=== PATIENT | male | born 1940 | race Caucasian/White ===

== ENCOUNTER 2017-08-26 14:33 | Outpatient (CLI) | payer MEDICARE ==
[2017-08-26 15:47] LABS: Hemoglobin 15.1 g/dL (14.0-18.0); Mean Corpuscular HGB CONC 34.2 g/dL (32.0-36.0); Mean Corpuscular Hemoglobin 31.1 pg (27.0-31.0); Mean Corpuscular Volume 90.9 fl (80.0-94.0); Mean Platelet Volume 9.9 fL (7.4-10.4); Platelet Count 149 thou/uL (130-400); RBC Distribution Width 12.3 % (11.5-14.5); Red Blood Cell (RBC) Count 4.85 mill/uL (4.70-6.10); White Blood Cell (WBC) Count 5.7 thou/uL (4.8-10.8)
[2017-08-26 16:14] LABS: Anion Gap 16 mmol/L (10-20); BUN (Urea Nitrogen) 21 mg/dL (8.4-25.7); Calc. Creatinine Clearance 0 mL/min (70-130); Carbon Dioxide 22 mmol/L (23-31); Chloride 106 mmol/L (98-107); Estimated GFR-MDRD 69; Glucose 122 mg/dL (83-110); Potassium 4.5 mmol/L (3.5-5.1); Sodium 139 mmol/L (136-145)
--- NOTE | 2017-10-27 21:31 | EKG ---
Test Reason : Blood Pressure : / mmHG Vent. Rate : 082 BPM Atrial Rate : 082 BPM P-R Int : 178 ms QRS Dur : 082 ms QT Int : 388 ms P-R-T Axes : 040 010 065 degrees QTc Int : 453 ms Normal sinus rhythm Normal ECG When compared with ECG of 11-APR-2016 14:34, No significant change was found Confirmed by OTF RESENDEZ M.D. ([id number]) on 10/27/2017 9:31:17 PM Referred By: JANET Confirmed By:OTF RESENDEZ M.D.
== END 2017-08-26 14:34 | disposition home or self-care (01) ==
LOC: LABBT 14:33
PROVIDERS: ATTEND Orthopaedic Surgery
DX: Z01.810 Encounter for preprocedural cardiovascular examination (principal); Z01.812 Encounter for preprocedural laboratory examination; G56.02 Carpal tunnel syndrome, left upper limb
CPT/HCPCS: 80048; 85027; 93005; 93010

== ENCOUNTER 2017-08-29 07:57 | Day surgery (SDC) | payer MEDICARE ==
[2017-08-26 14:45] VITALS: BMI 32.3
[2017-08-29] MEDS ORDERED: CEFAZOLIN/Water 2 GM/20 ML SYRINGE ONE (08:24)
[2017-08-29] MEDS ORDERED: Lidocaine 1% w/Epinephrine 1:200K 30 ML VIAL ONE (09:22)
--- NOTE | 2017-08-29 11:53 | OP ---
PREOPERATIVE DIAGNOSIS: Carpal tunnel syndrome, left. POSTOPERATIVE DIAGNOSIS: Carpal tunnel syndrome, left. SURGEON: Billy Jerez M.D. ANESTHESIA: TIVA. BLOOD LOSS: Minimal. SPECIMEN: None. DRAINS: None. COMPLICATIONS: None. PROCEDURE IN DETAIL: After appropriate consent was obtained, the patient was taken to the operating room where TIVA anesthesia was induced. The arm was prepped and draped in the sterile fashion. The ar m was exsanguinated. The tourniquet was inflated to 250 mmHg. A longitudinal incision was made. Hemos tasis obtained. Dissection was carried down to the transverse carpal ligament. The transverse carpal ligament was incised. Hemostat was placed deep in the transverse carpal ligament. The knife was used to cut down unto the ligament and hemostat. Care was taken to protect the contents of the carpal fernando l. Attention was then turned proximally. Metzenbaum scissors were used to release the carpal ligament into the forearm fascia. The carpal tunnel was palpated. There were no masses. The tourniquet was re leased. Hemostasis was obtained. Copious irrigation performed. The skin was closed with 4-0 Nylon. A sterile dressing was applied and the patient was placed in a splint. There are no complications.
== END 2017-08-29 12:05 | disposition home or self-care (01) ==
LOC: SDC 07:57
PROVIDERS: ATTEND Orthopaedic Surgery
PROC: 01N50ZZ Release Median Nerve, Open Approach (ICD-10-PCS; principal; 2017-08-29)
DX: G56.02 Carpal tunnel syndrome, left upper limb (principal); E11.9 Type 2 diabetes mellitus without complications; E34.9 Endocrine disorder, unspecified; G89.29 Other chronic pain; Z79.82 Long term (current) use of aspirin; Z79.899 Other long term (current) drug therapy; Z90.79 Acquired absence of other genital organ(s); Z98.890 Other specified postprocedural states; Z87.891 Personal history of nicotine dependence

== ENCOUNTER 2020-02-03 22:02 | Observation (INO) | payer MEDICARE ==
[2020-02-03] MEDS ORDERED: Adacel (T-DAP) 0.5 ML SYRINGE ONE (22:50)
--- NOTE | 2020-02-03 22:50 | CT ---
CT Brain WO Con: 02/03/2020 10:21 PM CLINICAL HISTORY: History of syncopal episode and fall. IMAGING TECHNIQUE: Multiple CT images were obtained of the brain without IV contrast. COMPARISON: None. FINDINGS: BRAIN: Evidence of acute infarct: None. Evidence of chronic ischemic change:None. Evidence of intracranial hemorrhage: None. Evidence of midline shift: Third ventricle and septum pellucidum are midline. Ventricles: There is generalized cerebral and cerebellar atrophy. Mass: There is a 4.9 cm extra-axial, CSF density mass within the anterior aspect of the left middle c ranial fossa suspicious for an arachnoid cyst SKULL: Intact. VISUALIZED PARANASAL SINUSES: Clear. MASTOID AIR CELLS: Clear. EXTRACRANIAL SOFT TISSUES: Normal. IMPRESSION: No acute intracranial abnormality. Mild generalized cerebral and cerebellar atrophy. Suspected arachnoid cyst within the left middle cranial fossa
--- NOTE | 2020-02-03 22:53 | RAD ---
XR Wrist 3 Lt View STANDARD: 02/03/2020 10:29 PM CLINICAL INDICATION: Fall with left wrist injury COMPARISON: None. FINDINGS: Bones: There is a mildly displaced dorsal triquetral fracture. There is a nondisplaced transverse li near fracture involving the distal pole of the scaphoid. Small focus of bone is seen adjacent to the radial styloid process likely reflecting sequela of remote injury. 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 Soft Tissue: Normal.. IMPRESSION: 1. Mildly displaced dorsal triquetral fracture. 2. Nondisplaced distal scaphoid pole fracture.
--- NOTE | 2020-02-03 22:57 | RAD ---
Chest AP view INDICATION: Syncope and collapse COMPARISON: March 12, 2008 and July 07, 2014 FINDINGS: Lungs: Stable eventration of the right hemidiaphragm. No confluent airspace opacity. Cardiac silhouette: Stable mild cardiomegaly Pulmonary vasculature: Normal Pleural spaces: No pleural effusion or pneumothorax is demonstrated. Upper abdomen: No abnormality seen. Osseous structures: No acute osseous abnormality. Additional findings: None. IMPRESSION: No acute cardiopulmonary abnormality.
[2020-02-03 23:11] LABS: #Lymphocytes 1.3 thou/uL (1.20-3.40); #Monocytes 0.9 thou/uL (0.11-0.59); #Neutrophils 6.4 thou/uL (1.40-6.50); %Basophils 0.4 % (0.0-1.0); %Eosinophils 0.5 % (0.0-10.0); %Lymphocytes 14.7 % (21.0-51.0); %Monocytes 10.1 % (0.0-10.0); %Neutrophils 74.4 % (42.0-75.0); Hemoglobin 14.9 g/dL (14.0-18.0); Mean Corpuscular HGB CONC 33.7 g/dL (32.0-36.0); Mean Corpuscular Hemoglobin 29.5 pg (27.0-31.0); Mean Corpuscular Volume 87.5 fL (78.0-98.0); Mean Platelet Volume 11.8 fL (7.4-10.4); Platelet Count 113 thou/uL (130-400); RBC Distribution Width 13.3 % (11.5-14.5); Red Blood Cell (RBC) Count 5.06 mill/uL (4.70-6.10); White Blood Cell (WBC) Count 8.6 thou/uL (4.8-10.8)
[2020-02-03] MEDS ORDERED: Morphine 4 MG/ML VIAL ONE (23:25)
[2020-02-03 23:34] LABS: ALT (SGPT) 15 U/L (8-55); AST (SGOT) 17 U/L (5-34); Albumin 4.2 g/dL (3.4-4.8); Alkaline Phosphatase 106 U/L (40-110); Anion Gap 16 mmol/L (10-20); BUN (Urea Nitrogen) 25 mg/dL (8.4-25.7); Bilirubin, Total 0.4 mg/dL (0.2-1.2); Calc. Creatinine Clearance 0 mL/min (70-130); Calcium 9.2 mg/dL (7.8-10.44); Carbon Dioxide 22 mmol/L (23-31); Chloride 103 mmol/L (98-107); Estimated GFR-MDRD 61; Globulin 2.7 g/dL (2.4-3.5); Glucose 145 mg/dL (83-110); Potassium 4.6 mmol/L (3.5-5.1); Protein, Total 6.9 g/dL (5.8-8.1); Sodium 136 mmol/L (136-145)
[2020-02-04 00:17] LABS: Bilirubin Negative (Negative); Blood, Urine Negative (Negative); Clarity Clear (Clear); Glucose, Urine (Dipstick) Normal (Negative); Ketone, Urine Negative (Negative); Leukocyte Negative Leu/uL (Negative); Nitrite Negative (Negative); Protein, Urine (Dipstick) 20 mg/dL (Neg-Trace); Specific Gravity, Urine 1.032 (1.002-1.036); pH, Urine 6.5 (5.0-9.0)
[2020-02-04] MEDS ORDERED: Bacitracin 1 PK ONE (00:31)
[2020-02-04] MEDS ORDERED: Acetaminophen 650 MG Suppository PR PRN (02:09)
--- NOTE | 2020-02-04 02:57 | PDOC.HHP ---
Hospitalist HPI - History of Present Illness Syncope History of Present Illness: Patient presents after having a syncopal episode while taking the trash outside. Per ED notes patient had a fall at 13:30 and at 20:30. Patient states his legs gave way the first time, however the second time he had a syncopal episode. He states he was on the steps and the next thing he remembers is waking up face down on the cement. He sustained a head injury and left wrist injury. His right 4th fingernail was avulsed when he fell. He had weakness in his legs and unable to stand. He managed to drag himself towards the door and call out to his for help. He reports brief LOC. Denies experiencing any symptoms prior to collapsing. No chest pain or dizziness. No leg weakness or lightheadedness. States he has chronic history of shortness of breath with exertion which has been slightly worse in the last couple of month. At present he reports generalized soreness due to the fall. Otherwise he is without complaints. ED Course: EKG showed NSR, HR 64. UA unremarkable. Initial troponin negative. Labs showed WCC 8.6, Hgb 14.9, Hct 44.3. Platelets 113. CMP unremarkable. Glucose 145. Trop negative. CXR showed no acute intrathoracic abnormalities. Left wrist xray: 1. Mildly displaced dorsal triquetral fracture. 2. Nondisplaced distal scaphoid pole fracture. CT head: IMPRESSION: No acute intracranial abnormality. Mild generalized cerebral and cerebellar atrophy. Suspected arachnoid cyst within the left middle cranial fossa Splint done in the ED. He was given a tetanus vaccine and pain was treated with Morphine 4 mg IV. Hospitalist ROS - Review of Systems Constitutional: denies: fever, chills, sweats, weakness, malaise, other Eyes: denies: pain, vision change, conjunctivae inflammation, eyelid inflammation, redness, other ENT: denies: ear pain, ear discharge, nose pain, nose discharge, nose congestion , mouth pain, mouth swelling, throat pain, throat swelling, other Respiratory: reports: SOB with excertion (chronic, worse in the last few weeks.) . denies: cough, dry, hemoptysis, pleuritic pain, sputum, wheezing, other Cardiovascular: denies: chest pain, palpitations, orthopnea, paroxysmal noc. dyspnea, edema, light headedness, other Gastrointestinal: denies: nausea, vomiting, abdominal pain, diarrhea, constipation, melena, hematochezia, other Genitourinary: denies: dysuria, frequency, incontinence, hematuria, retention, other Musculoskeletal: denies: neck pain, shoulder pain, arm pain, back pain, hand pain, leg pain, foot pain, other Skin: denies: rash, lesions, jovany, bruising, other Neurological: denies: weakness, numbness, incoordination, change in speech, confusion, seizures, other - Medication Medications: ALLERGIES: No known drug allergies. CURRENT MEDICATIONS: aspirin oral FriFeb 03, 2020 22:42 BALA Rodríguez Tammy TABLET : Strength - 81 mg : ORAL Patient Dose: 1 tab(s) Oral once a day. atorvastatin FriFeb 03, 2020 22:42 BALA Rodríguez Tammy TABLET : Strength - 40 mg : ORAL Patient Dose: 0.5 tab(s) Oral once a day (in the morning). metFORMIN FriFeb 03, 2020 22:42 BALA Rodríguez Tammy TABLET : Strength - 500 mg : ORAL Patient Dose: 1 tab(s) Oral 2 times a day. omeprazole FriFeb 03, 2020 22:42 BALA Rodríguez Tammy CAPSULE,DELAYED RELEASE (ENTERIC COATED) : Strength - 20 mg : ORAL Patient Dose: 2 tab(s) Oral once a day (in the morning). pioglitazone FriFeb 03, 2020 22:43 BALA Rodríguez Tammy tablet : Strength - 15 mg : ORAL Patient Dose: 15 mg Oral once a day (in the morning). nortriptyline FriFeb 03, 2020 22:43 BALA Rodríguez Tammy capsule : Strength - 50 mg : ORAL Patient Dose: 50 mg Oral once a day (at bedtime). lisinopril FriFeb 03, 2020 22:43 BALA Rodríguez Tammy tablet : Strength - 20 mg : ORAL Patient Dose: 20 mg Oral once a day (at bedtime). Depotestogen FriFeb 03, 2020 22:44 BALA Rodríguez Tammy oil : Strength - 50-2 : INTRAMUSCULAR Patient Dose: Unknown.2 WEEKS. Hospitalist History - Past Medical History Source: patient Cardiac: reports: HTN, Hyperlipidemia Psych: reports: Anxiety, Depression Endocrine: reports: Diabetes - Past Surgical History Past Surgical History: reports: Cholecystectomy, Other (Left wrist surgery Prostatectomy) - Family History Family History: reports: no pertinent history - Social History Smoking Status: Never smoker Alcohol: reports: None Drugs: reports: none Living Situation: With Family Activity level: independent ambulation - Exam General Appearance: NAD, awake alert Eye: PERRL, anicteric sclera Neck: supple, no lymphadenopathy Heart: RRR, no murmur, no gallops, no rubs, normal peripheral pulses Respiratory: CTAB, no wheezes, no rales, no ronchi, no tachypnea Gastrointestinal: soft, non-tender, non-distended, normal bowel sounds, no guarding, no rigidity Extremities: no edema Extremities - other findings: Splinted left lower arm, power 5/5 in lower legs, no hip pain, able to SLR Skin: normal turgor Skin - other findings: contusion to left eye, abrasion to left shoulder and chin Musculoskeletal: normal tone, normal strength, no muscle wasting Psychiatric: normal affect, normal behavior, A&O x 3 Hospitalist Results - Labs Result Diagrams: 02/03/20 22:55 02/03/20 22:55 Lab results: WBC 8.6 thou/uL (4.8-10.8) 02/03/20 22:55 Hgb 14.9 g/dL (14.0-18.0) 02/03/20 22:55 Hct 44.3 % (42.0-52.0) 02/03/20 22:55 MCV 87.5 fL (78.0-98.0) 02/03/20 22:55 Plt Count 113 thou/uL (130-400) L 02/03/20 22:55 Neutrophils % 74.4 % (42.0-75.0) 02/03/20 22:55 Sodium 136 mmol/L (136-145) 02/03/20 22:55 Potassium 4.6 mmol/L (3.5-5.1) 02/03/20 22:55 Chloride 103 mmol/L (98-107) 02/03/20 22:55 Carbon Dioxide 22 mmol/L (23-31) L 02/03/20 22:55 BUN 25 mg/dL (8.4-25.7) 02/03/20 22:55 Creatinine 1.15 mg/dL (0.7-1.3) 02/03/20 22:55 Glucose 145 mg/dL (83-110) H 02/03/20 22:55 Calcium 9.2 mg/dL (7.8-10.44) 02/03/20 22:55 Total Bilirubin 0.4 mg/dL (0.2-1.2) 02/03/20 22:55 AST 17 U/L (5-34) 02/03/20 22:55 ALT 15 U/L (8-55) 02/03/20 22:55 Alkaline Phosphatase 106 U/L (40-110) 02/03/20 22:55 Troponin I Less than 0.010 ng/mL (< 0.028) 02/04/20 01:47 Serum Total Protein 6.9 g/dL (5.8-8.1) 02/03/20 22:55 Albumin 4.2 g/dL (3.4-4.8) 02/03/20 22:55 Urine Ketones Negative mg/dL (Negative) 02/03/20 23:53 Urine Blood Negative (Negative) 02/03/20 23:53 Urine Nitrite Negative (Negative) 02/03/20 23:53 Ur Leukocyte Esterase Negative Raegan/uL (Negative) 02/03/20 23:53 - Radiology Interpretation CT scan - head Status: report reviewed by me Chest x-ray Status: report reviewed by ia Hospitalist H&P A/P - Problem (1) Syncope and collapse Code(s): R55 - SYNCOPE AND COLLAPSE Status: Acute (2) Head injury Code(s): S09.90XA - UNSPECIFIED INJURY OF HEAD, INITIAL ENCOUNTER Status: Acute (3) Fracture of scaphoid of left wrist Code(s): S62.002A - UNSP FRACTURE OF NAVICULAR BONE OF LEFT WRIST, INIT Status : Acute (4) Exertional shortness of breath Code(s): R06.02 - SHORTNESS OF BREATH Status: Chronic (5) Hypertension Code(s): I10 - ESSENTIAL (PRIMARY) HYPERTENSION Status: Chronic (6) Diabetes mellitus Code(s): E11.9 - TYPE 2 DIABETES MELLITUS WITHOUT COMPLICATIONS Status: Chronic - Plan Plan: Cardiac monitoring. Trend troponins. Add-on Mg+. Given worsening of chronic SOB, will obtain d-dimer. Echo, carotid US and orthostatic BPs. Reconcile home medications once verified. Monitor BP. Monitor glucose and initiate sliding scale. GI prophylaxis with famotidine. PT/OT consult. FULL CODE STATUS Surrogate decision maker is his Kylah Crenshaw.
[2020-02-04 03:07] VITALS: BMI 30.7
[2020-02-04] MEDS ORDERED: HumaLOG 300 UNITS/3 ML VIAL SC PRN ×2 (03:12)
[2020-02-04] MEDS ORDERED: Dextrose 50% Abboject 50 ML SYRINGE SLOW IVP PRN (03:12)
[2020-02-04] MEDS ORDERED: Dextrose 5% in Water 1,000 ML IV PRN (03:12)
[2020-02-04 03:54] LABS: #Lymphocytes 1.8 thou/uL (1.20-3.40); #Monocytes 0.9 thou/uL (0.11-0.59); #Neutrophils 4.9 thou/uL (1.40-6.50); %Basophils 0.3 % (0.0-1.0); %Eosinophils 0.5 % (0.0-10.0); %Monocytes 11.8 % (0.0-10.0); %Neutrophils 64.5 % (42.0-75.0); Hemoglobin 14.4 g/dL (14.0-18.0); Mean Corpuscular HGB CONC 33.8 g/dL (32.0-36.0); Mean Corpuscular Hemoglobin 29.5 pg (27.0-31.0); Mean Corpuscular Volume 87.3 fL (78.0-98.0); Mean Platelet Volume 11.4 fL (7.4-10.4); Platelet Count 114 thou/uL (130-400); RBC Distribution Width 13.5 % (11.5-14.5); Red Blood Cell (RBC) Count 4.88 mill/uL (4.70-6.10); White Blood Cell (WBC) Count 7.6 thou/uL (4.8-10.8)
[2020-02-04 04:01] LABS: Anion Gap 12 mmol/L (10-20); BUN (Urea Nitrogen) 25 mg/dL (8.4-25.7); Calc. Creatinine Clearance 91 mL/min (70-130); Calcium 8.9 mg/dL (7.8-10.44); Carbon Dioxide 25 mmol/L (23-31); Chloride 101 mmol/L (98-107); Estimated GFR-MDRD 67; Glucose 138 mg/dL (83-110); Potassium 4.2 mmol/L (3.5-5.1); Sodium 134 mmol/L (136-145)
--- NOTE | 2020-02-04 09:10 | ULT ---
ULTRASOUND DOPPLER DUPLEX CAROTID: DATE: 02/04/2020 HISTORY: 79-year-old male status post syncope TECHNIQUE: Grayscale, color-flow, and spectral analysis, of major arteries of neck. FINDINGS: There is weak Doppler signal which appears to be antegrade, in the regions of the bilateral vertebral arteries. These could represent flow in the actual vertebral arteries, or perhaps muscular branches. RIGHT: Atherosclerotic plaque:Little or none. Peak systolic and end diastolic velocities: CCA:90 cm/s, 10 cm/s ICA:65 cm/s, 15 cm/s ICA/CCA ratio:0.7 LEFT: Atherosclerotic plaque:Mild at proximal internal carotid. Peak systolic and end diastolic velocities: CCA:90 cm/s, 5 cm/s ICA:60 cm/s, 15 cm/s ICA/CCA ratio:0.8 IMPRESSION: 1) no evidence of hemodynamically significant stenosis in the carotids. 2) low velocities overall. 3) weak Doppler signal in the region of the vertebral arteries.
[2020-02-04] MEDS: Famotidine/PF 20 mg/2ml Vial SLOW IVP SCH ×2 (10:08→20:25)
[2020-02-04] MEDS: Acetaminophen 325 MG TAB PO PRN ×3 (10:39→20:25)
--- NOTE | 2020-02-04 14:08 | PDOC.HOSPP ---
- Subjective Encounter Date: 02/04/20 Encounter Time: 09:30 Subjective: c/o pain in his wrist and lower chest wall on the left no palp or sob - Objective Vital Signs & Weight: Vital Signs (12 hours) Temp Pulse Pulse Pulse Pulse Resp BP 02/04/20 11:55 99.4 F 91 16 02/04/20 11:35 72 80 91 119/53 L 02/04/20 07:57 99.1 F 65 14 BP BP BP Pulse Ox 02/04/20 11:55 137/67 91 L 02/04/20 11:35 127/75 137/67 02/04/20 07:57 105/57 L 94 L Weight Weight 252 lb 6.4 oz I&O: 02/03/20 02/04/20 02/05/20 06:59 06:59 06:59 Intake Total 0 Output Total 0 Balance 0 Result Diagrams: 02/04/20 03:31 02/04/20 03:30 Additional Labs: Accuchecks 02/04/20 12:15 POC Glucose 247 H Hospitalist ROS - Medication Medications: Active Medications Generic Name Dose Route Start Last Admin Trade Name Teofiloq PRN Reason Stop Dose Admin Acetaminophen 650 mg 02/04/20 02:09 02/04/20 10:39 Tylenol PO 650 mg Q4H PRN Administration Headache/Fever/Mild Pain (1-3) Famotidine 20 mg 02/04/20 09:00 02/04/20 10:08 Pepcid SLOW IVP 20 mg Q12HR KI Administration Insulin Human Lispro 0 units 02/04/20 03:12 02/04/20 12:22 Humalog SC 3 unit .MILD SLIDING SCALE PRN Administration Mild Correctional Scale - Exam General Appearance: awake alert, ill appearing Eye: PERRL, anicteric sclera ENT: no oropharyngeal lesions, dry oral mucosa Neck: supple, no JVD Heart: RRR, no murmur Respiratory: no wheezes, no rales Gastrointestinal: soft, non-tender, non-distended, normal bowel sounds Extremities: no cyanosis, no edema Neurological: cranial nerve grossly intact, no focal deficits Psychiatric: A&O x 3 Hosp A/P (1) Syncope and collapse Code(s): R55 - SYNCOPE AND COLLAPSE Status: Acute (2) Fracture of scaphoid of left wrist Code(s): S62.002A - UNSP FRACTURE OF NAVICULAR BONE OF LEFT WRIST, INIT Status : Acute Qualifiers: Encounter type: subsequent encounter Scaphoid bone location: distal pole Fracture type: closed Fracture healing: with routine healing (3) Dyslipidemia Code(s): E78.5 - HYPERLIPIDEMIA, UNSPECIFIED Status: Chronic (4) CAD (coronary artery disease) Code(s): I25.10 - ATHSCL HEART DISEASE OF [place] CORONARY ARTERY W/O ANG PCTRS Status: Chronic Qualifiers: Coronary Disease-Associated Artery/Lesion type: [place] artery [place] vs. transplanted heart: [place] heart Associated angina: without angina Qualified Code(s): I25.10 - Atherosclerotic heart disease of [place] coronary artery without angina pectoris (5) Anxiety Code(s): F41.9 - ANXIETY DISORDER, UNSPECIFIED Status: Chronic (6) Diabetes mellitus Code(s): E11.9 - TYPE 2 DIABETES MELLITUS WITHOUT COMPLICATIONS Status: Chronic Qualifiers: Diabetes mellitus type: type 2 Diabetes mellitus retirement insulin use: without retirement use (7) Hypertension Code(s): I10 - ESSENTIAL (PRIMARY) HYPERTENSION Status: Chronic Qualifiers: Hypertension type: essential hypertension Qualified Code(s): I10 - Essential (primary) hypertension - Plan gentle iv hydration PT/OT eval to see if he needs rehab/swing placement continue asp, plavix, lipitor, metformin for now he had stress test with in the last 6months in 's office, has had total of 3 stents (last one 2 yrs back) trop x 3 -ve dc plan in am home/placement outpt ortho appointment
[2020-02-04] MEDS: metFORMIN 500 MG TAB PO SCH (16:22)
[2020-02-04] MEDS ORDERED: Clopidogrel Bisulfate 75 MG TAB PO SCH (21:00)
[2020-02-04] MEDS ORDERED: Nortriptyline HCl 25 MG CAP PO SCH (21:00)
[2020-02-04] MEDS ORDERED: Atorvastatin Calcium 20 MG TAB PO SCH (21:00)
[2020-02-05] MEDS: metFORMIN 500 MG TAB PO SCH (08:45)
[2020-02-05] MEDS: Famotidine/PF 20 mg/2ml Vial SLOW IVP SCH (08:45)
[2020-02-05] MEDS: Acetaminophen 325 MG TAB PO PRN (08:49)
[2020-02-05] MEDS ORDERED: Multivitamin W/ Minerals 1 TAB PO SCH (09:00)
[2020-02-05] MEDS ORDERED: Ascorbic Acid 500 mg Chewable Tablet PO SCH (09:00)
[2020-02-05] MEDS ORDERED: Aspirin 81 mg Enteric Coated Tablet PO SCH (09:00)
[2020-02-05] MEDS ORDERED: Ibuprofen 200 MG TAB PO PRN (10:12)
[2020-02-05 15:48] VITALS: BP 149/83; TEMP 98.6
--- NOTE | 2020-02-07 06:37 | DIS ---
DATE OF ADMISSION: 02/04/2020 DATE OF DISCHARGE: 02/05/2020 PRIMARY DISCHARGE DIAGNOSIS: Syncope, resolved. SECONDARY DISCHARGE DIAGNOSES: Fracture of scaphoid carpal bone, left wrist; dyslipidemia; coronary artery disease; anxiety; diabetes mellitus type 2; hypertension. PROCEDURES DONE DURING HOSPITALIZATION: Chest x-ray done showed no acute cardiopulmonary abnormality. CT brain without contrast done showed no acute intracranial abnormality. No suspected arachnoid cyst in the left middle cranial fossa. Left wrist three-view standard x-ray done showed mildly displaced dorsal triquetral fracture, nondisplaced distal scaphoid pole fracture. Carotid Doppler done showed no evidence of hemodynamically significant stenosis in the carotids. There is weak Doppler signal in the region of the vertebral arteries. Echo with 2D Doppler showed ejection fraction of 50% to 55% with diastolic dysfunction. H and H 14 and 42, platelet count 114, white count of 7.6, MCV 87. Troponin x2 negative. BUN 25, creatinine 1.0. DISCHARGE MEDICATIONS: 1. Vitamin C 1000 mg p.o. daily. 2. Aspirin 81 mg p.o. daily. 3. Lipitor 20 mg p.o. at bedtime. 4. Plavix 75 mg p.o. q.p.m. 5. Lisinopril 10 mg p.o. daily. 6. Metformin 500 mg p.o. twice daily. 7. Multivitamin one tablet once daily. 8. Nortriptyline 50 mg p.o. at bedtime. 9. Omeprazole 40 mg p.o. daily. 10. Motrin 400 mg p.o. 3 times daily p.r.n. ALLERGIES: NO KNOWN DRUG ALLERGIES. DISCHARGE PLAN: The patient to follow up with his primary care physician, Dr. Garret Delacruz in 1 week. He needs to follow up with Dr. Anatoliy Doll, his paraplanner, in 1 week; Dr. Jerez, his primary orthopedic surgeon in 2 weeks for the carpal bone fracture. BRIEF COURSE DURING HOSPITALIZATION: The patient initially got admitted on the after he had multiple falls at home. In view of this and multiple risk factors, the patient was admitted to telemetry. He has had initial CT brain, left wrist x-rays, and chest x-ray done along with carotid Doppler. CT brain did not reveal any acute intracranial abnormality. The patient remained hemodynamically stable. He has 2 carpal bone fractures in the left wrist and needs to follow up with Dr. Jerez in 2 weeks. His telemetry has not revealed any arrhythmias. The patient in fact has had a stress test done in the last [address] Doll's office and will prefer him to follow up with Dr. Doll in the next 1 week. He has otherwise remained hemodynamically stable. He has ambulated in the hallway. He is wanting to go home. He does not want to be placed anywhere. Home Health will be arranged via Case Management consultation. Please note I have seen and examined the patient on the day of discharge. Job ID: [id number]
== END 2020-02-05 15:46 | disposition home health service (06) ==
LOC: ERS 22:02 → 2NO 02-04 00:22
PROVIDERS: ADMIT Internal Medicine; ATTEND Internal Medicine
DX: R55 Syncope and collapse (principal); S62.002A Unspecified fracture of navicular [scaphoid] bone of left wrist, initial encounter for closed fracture; I10 Essential (primary) hypertension; I25.10 Atherosclerotic heart disease of native coronary artery without angina pectoris; E11.9 Type 2 diabetes mellitus without complications; E78.5 Hyperlipidemia, unspecified; F41.9 Anxiety disorder, unspecified; F32.9 Major depressive disorder, single episode, unspecified; S09.90XA Unspecified injury of head, initial encounter; Z79.82 Long term (current) use of aspirin; Z79.84 Long term (current) use of oral hypoglycemic drugs; Z79.899 Other long term (current) drug therapy
CPT/HCPCS: 25622; 36415; 36416; 70450; 71045; 80048; 80053; 81003; 83735; 83880; 84484; 85025; 85379; 90471; 90715; 93005; 93306; 93880; 96374; 96375; 96376; G0378; J2270; S0028